=== PATIENT | male | born 1970 | race Caucasian/White ===

== ENCOUNTER 2017-01-02 10:23 | Emergency (ER) | payer MEDICAID ==
[~2017-01-02] VITALS: Ht 185.4 cm; Wt 98.0 kg
[~2017-01-02 10:23] MED LIST: ALBUAER3 IN; ALLO100T PO; ALPR0.5T7 PO; ASCO500T11 PO; ASPI-463 PO; HYDR25TA4 PO; METO-158 PO; OMEG100078 PO; OMEP20CA74 PO; ONDA4TAB5 PO; SUCR1TAB PO
[2017-01-02 10:49] VITALS: BP 128/101
[2017-01-02] MEDS ORDERED: ALBUTEROL SULF 2.5 MG/0.5ML(0.5%) NEB SOLN NEB ONE (11:00)
[2017-01-02] MEDS ORDERED: cefTRIAXone SOD 1,000 MG VL IM ONE (11:00)
[2017-01-02] MEDS ORDERED: methylPREDNISolone SOD SUCC 125 MG/2 ML VL IM ONE (11:00)
[2017-01-02] MEDS ORDERED: IPRATROPIUM BROM 0.5 MG/2.5ML INH SOL NEB ONE (11:00)
[2017-01-02] MEDS ORDERED: LIDOCAINE 1% HCL (LOCAL ANESTH.) INJ 20ML MDV ONE (11:21)
== END 2017-01-02 12:02 | disposition home or self-care (01) ==
LOC: ER 10:23
DX: J20.9 Acute bronchitis, unspecified (principal)
CPT/HCPCS: 71020; 94640; 96372; 99284; J0696; J2001; J2930

== ENCOUNTER 2021-02-15 08:40 | Day surgery (SDC) | payer MEDICAID ==
[2021-02-13 14:34] LABS: Basophils # (auto) 0 10 ^3/uL (0-0.2); Eosinophils # (auto) 0.1 10 ^3/uL (0-0.8); Lymphocytes # (auto) 0.7 10 ^3/uL (0.4-5.4); Red Cell Distribution Width 14.1 % (11.8-14.3)
[2021-02-13 14:36] LABS: Basophils % (auto) 0.4 % (0.0-2.0); Eosinophils % (auto) 1.4 % (0.0-7.0); Hemoglobin 13.6 g/dL (13.5-17.5); Lymphocytes % (auto) 11.1 % (10.0-50.0); Mean Corpuscular Hemoglobin 33.9 pg (28.0-32.0); Mean Corpuscular Hgb Conc. 33.2 g/dL (32.0-36.0); Mean Corpuscular Volume 102.3 fL (80.0-100.0); Monocytes # (auto) 0.8 10 ^3/uL (0-1.3); Monocytes % (auto) 11.8 % (0.0-12.0); Neutrophils # (auto) 4.8 10 ^3/uL (1.6-8.6); Neutrophils % (auto) 75.3 % (37.0-80.0); Red Blood Cells 4.01 10^6/uL (4.5-5.90); White Blood Cell 6.4 10^3/uL (4.4-10.8)
[2021-02-13 14:52] LABS: Urine Bacteria NONE SEEN /hpf (None Seen); Urine Blood Negative /uL (Negative); Urine Specific Gravity 1.008 (1.001-1.035); Urine WBC <1 /hpf (0 - 3)
[2021-02-13 15:05] LABS: Calcium 8.5 mg/dL (8.5-10.1); Potassium 3.8 mmol/L (3.5-5.1)
[2021-02-13 15:08] LABS: Albumin 3.2 g/dL (3.4-5.0)
[2021-02-13 15:11] LABS: Bilirubin, Total 0.8 mg/dL (0.2-1.0); Total Protein 6.9 g/dL (6.4-8.2)
[~2021-02-15] VITALS: Ht 175.3 cm; Wt 112.5 kg
[~2021-02-15 08:40] MED LIST changes: -ALPR0.5T7 PO; +ATOR80TA PO; +BUDE1AER4 IN; +CETI10TA2 PO; +DICY20TA2 PO; +FURO1TAB31 PO; +GABA300C10 PO; +HYDR-4072 PO; +LISI2.5T47 PO; +MULT-1027 PO; +ONDA-144 PO; -ONDA4TAB5 PO; +PANT1INJ3 PO; +POTA-220 PO; +PRE5T PO; +SOTA80TA PO; +THIA100T26 PO; +TIZA4TAB9 PO; +TRIA1SPR6; +TURM1TAB PO; +VITA400C49 PO; +ZINC30CA PO
[2021-02-15] MEDS ORDERED: cefTRIAXone 1GM/50ML D5W 0 ML IV ONE (09:05)
[2021-02-15] MEDS ORDERED: ceFAZolin 1GM/50ML 100 ML IV ONE (09:08)
[2021-02-15] MEDS ORDERED: MIDAZOLAM HCL 2MG/2ML 2ml VIAL (1mg/ml) ONE (10:22)
[2021-02-15] MEDS ORDERED: fentaNYL CITRATE 100 MCG/2 ML VL ONE (10:22)
[2021-02-15] MEDS ORDERED: PROPOFOL 10 MG/ML 20 ML IV ONE (10:22)
[2021-02-15] MEDS ORDERED: SODIUM CHLORIDE LOCK 10 ML ONE (10:22)
[2021-02-15] MEDS ORDERED: ONDANSETRON HCL 4 MG/2 ML VIAL ONE (10:22)
[2021-02-15] MEDS ORDERED: HYDROmorphone HCL 2 MG/ML VL IV PRN (11:45)
[2021-02-15] MEDS ORDERED: MORPHINE SULFATE 4 MG/ML SYR/VIAL IV PRN (11:45)
[2021-02-15] MEDS ORDERED: METOCLOPRAMIDE HCL 5MG/ml INJ 2ml VIAL IV PRN (11:45)
[2021-02-15] MEDS ORDERED: LIDOCAINE 1% HCL (LOCAL ANESTH.) INJ 20ML MDV ONE (11:48)
[2021-02-15] MEDS ORDERED: BUPIVACAINE 0.5% MPF INJ 30ML SDV IJ ONE (11:49)
[2021-02-15 13:25] VITALS: BP 108/72
== END 2021-02-15 13:25 | disposition home or self-care (01) ==
LOC: SUR 08:40
PROVIDERS: ATTEND Podiatrist
DX: M79.674 Pain in right toe(s) (principal); L84 Corns and callosities; I10 Essential (primary) hypertension; E78.5 Hyperlipidemia, unspecified; J45.909 Unspecified asthma, uncomplicated; G47.33 Obstructive sleep apnea (adult) (pediatric); F41.9 Anxiety disorder, unspecified; F32.9 Major depressive disorder, single episode, unspecified; Z98.890 Other specified postprocedural states; Z79.899 Other long term (current) drug therapy; Z20.822 Contact with and (suspected) exposure to COVID-19
CPT/HCPCS: 28288; 36415; 80053; 81001; 85025; J0690; J2001; J2250; J2405; J2704; J3010; J3490; U0003; J0696